=== PATIENT | female | born 1945 | race Caucasian/White ===

== ENCOUNTER 2017-01-31 11:22 | Emergency (ER) | payer OTHER ==
[2017-01-31 11:30] VITALS: BP 138/90; BMI 25.0
[2017-01-31] MEDS ORDERED: NORFLEX INJ IM ONE (12:20)
[2017-01-31] MEDS ORDERED: TORADOL 60 MG VIAL IM ONE (12:20)
[2017-01-31] MEDS ORDERED: TORADOL 60 MG VIAL ONE (12:23)
[2017-01-31] MEDS ORDERED: NORFLEX INJ ONE (12:23)
--- NOTE | 2017-01-31 12:23 | DR.GENAD ---
HPI - PCP Primary Care Physician: WEI - HPI Comment HPI Comment: PATIENT HAVE NO HISTORY OF TRAUMA OR CHRONIC BACK PAIN. NO HISTORY OF SCIATICA. PATIENT HAVE NO SIGNIFICANT PAST MEDICAL ILLNESS. - Complaint/Symptoms Chief Complaint Doctors Comments: RIGHT HIP PAIN RADIATING BACK OF LEG TIMES 2 TO 3 DAYS. Chief Complaint:: PT C/O RT HIP PAIN RADIATING DOWN LEG. PT STATES THE PAIN HAS BEEN GOING ON FOR 2 DAYS. PT DENIES ANY TRAUMA. Self Treatment fo Chief Complaint: ALIEVE AND FLEXERIL - Nurses notes reviewed Nurses Notes Review: Yes - Source History Provided: Patient - Mode of Arrival Mode of Arrival: Ambulatory - Timing Onset of Chief Complaint: 01/29/17 Came on: Suddenly - Duration Duration: Constant Duration: Days - Severity Severity: Severe PMH - PMH Past Medical History: No Past Surgical History: No - Family History History of Family Medical Conditions: No - Social History Does patient currently use any type of tobacco product: Yes Have you used tobacco products in the last 12 months: Yes Type of Tobacco Use: Cigarettes Does any household member use tobacco: Yes Alcohol Use: None Do you use any recreational Drugs:: No Lives With: Family Lives Where: Home - infectious screening In the last 2 months have you had wt loss of >10#?: NO Have you had fever, night sweats or hemotysis?: No Have you traveled outside the country in the last 6 months?: No Isolation: Standard ROS - Review of Systems Constitutional: Weakness, Fatigue, Loss of Appetite. negative: Fever Eyes: No Symptoms Reported. negative: Eye Pain ENTM: Nose Congestion, Throat Pain. negative: Ear Pain Respiratoy: Productive Cough. negative: Short of Breath, Wheezing, Hemoptysis Cardiovascular: No Symptoms Reported. negative: Edema Gastrointestinal/Abdominal: Nausea. negative: Abdominal Pain, Constipation, Diarrhea, Vomiting Genitourinary: No Symptoms Reported. negative: Dysuria, Frequency, Hematuria Neurological: No Symptoms Reported, Weakness. negative: Dizziness, Problems Walking Musculoskeletal: Joint Pain, Muscle Pain, Neck Pain, Hip Integumentary: Bruises Hematologic/Lymphatic: Easy Bleeding, Easy Bruising Endocrine: No Symptoms Reported All Other Systems: Reviewed and Negative PE - Vital Signs Vitals: Temperature 97.9 F Pulse Rate 115 Respiratory Rate 22 Blood Pressure 138/90 O2 Sat by Pulse Oximetry 91 - General Limitations: No Limitations General Appearance: Alert - Head Head Exam: Normal Inspection - Eyes Eye exam: Normal Appearance - ENT ENT Exam: Normal External Ear Exam External Ear Exam: Normal External Inspection TM/Canal Exam: Bilateral Normal Nose Exam: Normal Nose Exam Mouth Exam: Normal Inspection Throat Exam: Normal Inspection - Neck Neck Exam: Trachea Midline - Chest Chest Inspection: Symmetric Chest Wall Rise - Respiratory Respiratory Exam: Normal Lung Sounds Bilat Respiratory Exam: Bilateral Clear to Auscultation - Cardiovascular Cardiovascular Exam: Regular Rate, Normal Rhythm, Normal Heart Sounds - Abdominal Exam Abdominal Exam: Normal Bowel Sounds, Soft. negative: Tenderness - Extremities Extremities Exam: Tenderness (RIGHT HIP TENDERNESS). negative: Joint Swelling - Back Back Exam: Normal Inspection - Neurologic Neurological Exam: Alert, Oriented X3 - Skin Skin Exam: Other (BRUISES IN DIFFERENT STAGE OF HEALING.) MDM - Additional Information Additional Information Obtained From: Family - Differential Diagnosis Differential Diagnosis: HIP FRACTURE, SCIATICA, ARTHRITIS Course - Treatment Treatment: see orders. - Consultation Consultation Comments: Discuss patient with Dr. Quiroz, [facility]. He accepted patient for transfer. - Education/Counseling Education/Counseling: Patient, Family, Education ROR - Labs Reviewed Laboratory Results Reviewed?: Yes Result Diagrams: 01/31/17 12:35 01/31/17 12:35 Laboratory: WBC 207.3 X10^3/uL (3.6-10.0) H* 01/31/17 12:35 RBC 3.59 X10^6/uL (3.5-5.4) 01/31/17 12:35 Hgb 10.3 g/dL (12.0-16.0) L 01/31/17 12:35 Hct 32.5 % (36.0-47.0) L 01/31/17 12:35 MCV 90.5 fL (80.0-100.0) 01/31/17 12:35 MCH 28.6 pg (27.0-34.0) 01/31/17 12:35 MCHC 31.6 g/dL (33.0-35.0) L 01/31/17 12:35 RDW 14.7 % (11.6-16.5) 01/31/17 12:35 Plt Count 7 X10^3/uL (150.0-450.0) L* 01/31/17 12:35 Plt Count Comment Decreased (ADEQUATE) A 01/31/17 12:35 MPV 10.9 fL (7.4-11.0) 01/31/17 12:35 Neut % 19.9 % (42.0-75.0) L 01/31/17 12:35 Lymph % 2.5 % (21.0-51.0) L 01/31/17 12:35 Ritchie % 77.6 % (0.0-13.0) H 01/31/17 12:35 Eos % 0.0 % (0.9-2.9) L 01/31/17 12:35 Baso % 0 % (0.2-1.0) L 01/31/17 12:35 Neut # 41.2 x10^3/uL (2.2-4.8) H 01/31/17 12:35 Lymph # 5.2 X10^3/uL (1.3-2.9) H 01/31/17 12:35 Ritchie # 160.8 x10^3/uL (0.3-0.8) H 01/31/17 12:35 Eos # 0.1 x10^3/uL (0.0-0.2) 01/31/17 12:35 Baso # 0.0 X10^3/uL (0.0-0.1) 01/31/17 12:35 Absolute Nucleated RBC 0.0 /100WBC 01/31/17 12:35 Total Counted 100 01/31/17 12:35 Neutrophils % (Manual) 17 % (39-76) L 01/31/17 12:35 Band Neutrophils % 3 % (0-10) 01/31/17 12:35 Lymphocytes % (Manual) 10 % (13-43) L 01/31/17 12:35 Monocytes % (Manual) 10 % (4-9) H 01/31/17 12:35 Myelocytes % 10 01/31/17 12:35 Promyelocytes % 10 01/31/17 12:35 Blast Cells 40 (-1) H 01/31/17 12:35 Plt Morphology Comment Normal (NORMAL) 01/31/17 12:35 RBC Morphology Normal (NORMAL) 01/31/17 12:35 D-Dimer 826 ng/mL (0-400) H* 01/31/17 12:35 Sodium 141 mmol/L (136-145) 01/31/17 12:35 Corrected Sodium 142 mmol/L (136-145) 01/31/17 12:35 Potassium 3.0 mmol/L (3.5-5.1) L* 01/31/17 12:35 Chloride 103 mmol/L (98-107) 01/31/17 12:35 Carbon Dioxide 27.9 mmol/L (21-32) 01/31/17 12:35 BUN 11 mg/dL (7-18) 01/31/17 12:35 Creatinine 1.33 mg/dL (0.55-1.02) H 01/31/17 12:35 Est GFR (MDRD) Af Amer 50 (>60) L 01/31/17 12:35 Est GFR (MDRD) Non-Af 42 (>60) L 01/31/17 12:35 Glucose 124 mg/dL (65-99) H 01/31/17 12:35 Calcium 8.8 mg/dL (8.5-10.1) 01/31/17 12:35 Corrected Calcium 9.4 mg/dL (8.5-10.1) 01/31/17 12:35 Total Bilirubin 0.70 mg/dL (0.2-1.0) 01/31/17 12:35 AST 25 Units/L (15-37) 01/31/17 12:35 ALT 21 Units/L (12-78) 01/31/17 12:35 Alkaline Phosphatase 117 Units/L (46-116) H 01/31/17 12:35 Total Protein 7.1 g/dL (6.4-8.2) 01/31/17 12:35 Albumin 3.2 g/dL (3.4-5.0) L 01/31/17 12:35 Globulin 3.9 g/dL (2.5-4.5) 01/31/17 12:35 Albumin/Globulin Ratio 0.8 Ratio (1.1-2.1) L 01/31/17 12:35 - XRAY XRAY Interpreted by: Self XRAY Findings: no acute findings - Diagnosis Discharge Problem: Right hip pain, Thrombocytopenia Elevated white blood cell count Qualifiers: Leukocytosis type: other Qualified Code(s): D72.828 - Other elevated white blood cell count Anemia Qualifiers: Anemia type: unspecified type Qualified Code(s): D64.9 - Anemia, unspecified Leukemia Qualifiers: Leukemia type: unspecified - Discharge Plan Disposition: 02 XFER SHT-TRM HOSP Condition: Stable - Follow ups/Referrals Follow ups/Referrals: NFD,None [Primary Care Provider] - 3 days - Instructions
[2017-01-31 12:44] LABS: BASOPHILS % (AUTO) 0 % (0.2-1.0); EOSINOPHILS # (AUTO) 0.1 x10^3/uL (0.0-0.2); HEMATOCRIT 32.5 % (36.0-47.0); HEMOGLOBIN 10.3 g/dL (12.0-16.0); LYMPHOCYTES # (AUTO) 5.2 X10^3/uL (1.3-2.9); LYMPHOCYTES % (AUTO) 2.5 % (21.0-51.0); MEAN CORPUSCULAR HEMOGLOBIN 28.6 pg (27.0-34.0); MEAN CORPUSCULAR HGB CONC 31.6 g/dL (33.0-35.0); MEAN CORPUSCULAR VOLUME 90.5 fL (80.0-100.0); MEAN PLATELET VOLUME 10.9 fL (7.4-11.0); MONOCYTES # (AUTO) 160.8 x10^3/uL (0.3-0.8); MONOCYTES % (AUTO) 77.6 % (0.0-13.0); NEUTROPHILS # (AUTO) 41.2 x10^3/uL (2.2-4.8); NEUTROPHILS % (AUTO) 19.9 % (42.0-75.0); RED BLOOD COUNT 3.59 X10^6/uL (3.5-5.4); RED CELL DISTRIBUTION WIDTH 14.7 % (11.6-16.5); WHITE BLOOD COUNT 207.3 X10^3/uL (3.6-10.0)
[2017-01-31 13:25] LABS: PLATELET COUNT 7 X10^3/uL (150.0-450.0)
[2017-01-31] MEDS ORDERED: MORPHINE SULFATE INJ 4 MG IVP ONE (13:51)
[2017-01-31] MEDS ORDERED: ZOFRAN INJ 4 MG VIAL IVP ONE (13:51)
[2017-01-31] MEDS ORDERED: ZOFRAN INJ 4 MG VIAL ONE (13:53)
[2017-01-31] MEDS ORDERED: NS 1000 ML 1,000 ML ONE (13:53)
[2017-01-31] MEDS ORDERED: MORPHINE SULFATE INJ 4 MG ONE (13:53)
[2017-01-31 13:59] LABS: BAND NEUTROPHILS % 3 % (0-10)
[2017-01-31 14:00] LABS: MYELOCYTES % 10; PLATELET MORPHOLOGY COMMENT NORMAL (NORMAL); PROMYELOCYTES % 10
[2017-01-31] MEDS ORDERED: NS 1000 ML 1,000 ML IV SCH (14:00)
[2017-01-31 14:19] LABS: CALCIUM 8.8 mg/dL (8.5-10.1); CARBON DIOXIDE 27.9 mmol/L (21-32); CREATININE 1.33 mg/dL (0.55-1.02)
[2017-01-31 14:25] LABS: ALBUMIN 3.2 g/dL (3.4-5.0); COR CA(FOR HYPOALB) 9.4 mg/dL (8.5-10.1); TOTAL PROTEIN 7.1 g/dL (6.4-8.2)
[2017-01-31] MEDS ORDERED: DILAUDID INJ IVP ONE ×2 (14:45)
[2017-01-31] MEDS ORDERED: DILAUDID INJ ONE (14:46)
--- NOTE | 2017-01-31 16:18 | RAD ---
HISTORY: Pain Study: Right hip series Comparison: None Findings: There is moderate joint space narrowing symmetrically in both hips. No fracture or dislocation is se en. There are mild marginal osteophytes around the right femoral head. The pelvis is intact. The bon es are osteopenic. 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 Osteopenia. Reported By:
--- NOTE | 2017-01-31 16:46 | RAD ---
HISTORY: Pain Study: Lumbar spine series Comparison: None Findings: The lumbar vertebra are well aligned. There is mild disc space narrowing throughout. No fracture or subluxation is seen. The bones are osteopenic. There sclerotic changes of the facets throughout with no pars defects seen. The pedicles are intact. IMPRESSION: Mild degenerative disk changes throughout and mild osteoarthritic changes of the facets inferiorly w ith no acute abnormality seen . Osteopenia Reported By:
== END 2017-01-31 14:50 | disposition short-term general hospital (02) ==
LOC: ER 11:30
DX: M25.551 Pain in right hip (principal); D69.6 Thrombocytopenia, unspecified; D72.828 Other elevated white blood cell count; R79.1 Abnormal coagulation profile
CPT/HCPCS: 36415; 72110; 73501; 80053; 85025; 85060; 85378; 87040; 96365; 96372; 96374; 96375; 99283; 99285; A4222; J1170; J1885; J2270; J2360; J2405

== ENCOUNTER 2017-03-16 17:56 | Emergency (ER) | payer OTHER ==
[2017-03-16 18:04] VITALS: BP 114/66; BMI 19.5
--- NOTE | 2017-03-16 18:31 | DR.GENAD ---
HPI - PCP Primary Care Physician: dimitri - Complaint/Symptoms Chief Complaint Doctors Comments: Patient is scheduled to return to [place] tomorrow for a bone maldonado to be done. Patient has been doing well upt to now. Her daughter reports that patient reports that she is short of breath. 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 She was hospitalized up to three days ago is scheduled to return on tomorrow for a bone marrow. VSS afebrile in no acute distress. Chief Complaint:: patient was in the hospital in [place] for 5 weeks she got out wednesday, since then she has been short of breath and having chest pain that comes and goes. - Source History Provided: Patient - Mode of Arrival Mode of Arrival: Ambulatory - Timing Onset of Chief Complaint: 03/08/17 PMH - PMH Past Medical History: No Past Medical History Comment: leukemia Past Surgical History: No - Family History History of Family Medical Conditions: No - Social History Does patient currently use any type of tobacco product: No Have you used tobacco products in the last 12 months: No Type of Tobacco Use: None Does any household member use tobacco: No Alcohol Use: None Do you use any recreational Drugs:: No Lives With: Family Lives Where: Home - infectious screening In the last 2 months have you had wt loss of >10#?: NO Have you had fever, night sweats or hemotysis?: No Have you traveled outside the country in the last 6 months?: No Isolation: Standard ROS - Review of Systems Constitutional: No Symptoms Reported Eyes: No Symptoms Reported ENTM: No Symptoms Reported Respiratoy: No Symptoms Reported Cardiovascular: No Symptoms Reported Gastrointestinal/Abdominal: No Symptoms Reported Genitourinary: No Symptoms Reported Neurological: See HPI, Anxiety Musculoskeletal: No Symptoms Reported Integumentary: No Symptoms Reported Hematologic/Lymphatic: No Symptoms Reported Endocrine: No Symptoms Reported Psychiatric: No Symptoms Reported All Other Systems: Reviewed and Negative PE - Vital Signs Vitals: Temperature 97.6 F Pulse Rate 59 Respiratory Rate 18 Blood Pressure 114/66 O2 Sat by Pulse Oximetry 100 - General Limitations: No Limitations General Appearance: Alert - Head Head Exam: Normal Inspection - Eyes Eye exam: Normal Appearance - ENT ENT Exam: Normal Exam External Ear Exam: Normal External Inspection TM/Canal Exam: Bilateral Normal Nose Exam: Normal Nose Exam Mouth Exam: Normal Inspection Throat Exam: Normal Inspection - Neck Neck Exam: Normal Inspection - Chest Chest Inspection: Normal Inspection - Respiratory Respiratory Exam: Normal Lung Sounds Bilat Respiratory Exam: Bilateral Clear to Auscultation - Cardiovascular Cardiovascular Exam: Regular Rate, Normal Rhythm - Abdominal Exam Abdominal Exam: Normal Inspection Abdominal Tenderness: negative: RUQ, RLQ, LUQ, LLQ, Epigastrium, Suprapubic, Diffuse, Mild, Moderate, Severe, Other - Extremities Extremities Exam: Normal Inspection, Full ROM - Back Back Exam: Normal Inspection - Neurologic Neurological Exam: Alert, Oriented X3, CN II-XII Intact - Psychiatric Psychiatric Exam: Normal Affect - Skin Skin Exam: Warm, Dry, Intact - Diagnosis Discharge Problem: Anxiety - Discharge Plan Condition: Stable - Follow ups/Referrals Follow ups/Referrals: Tahir Ness [Primary Care Provider] - 3 days - Instructions
[2017-03-16] MEDS ORDERED: ATIVAN TAB 1 MG PO ONE (18:35)
[2017-03-16] MEDS ORDERED: ATIVAN TAB 1 MG ONE (18:37)
== END 2017-03-16 18:56 | disposition home or self-care (01) ==
LOC: ER 18:04
DX: F41.8 Other specified anxiety disorders (principal)
CPT/HCPCS: 99282

== ENCOUNTER 2017-08-09 12:52 | Inpatient (IN) | payer OTHER ==
[2017-08-09] MEDS ORDERED: DOPAMINE IV PREMIX 400 MG/250 ML 400 MG/250 ML BAG IV PRN (13:17)
[2017-08-09] MEDS ORDERED: NS 1000 ML 1,000 ML IV ONE (13:17)
--- NOTE | 2017-08-09 13:20 | DR.GENAD ---
HPI - PCP Primary Care Physician: Dr Ness - Complaint/Symptoms Chief Complaint Doctors Comments: Patient presented to the ED with complaint of lethargic. She is a cancer patient receiving care in [place] she has AML. She receives blood weekly. PMH - PMH Past Surgical History: No - Social History Do you use any recreational Drugs:: No ROS - Review of Systems Constitutional: See HPI Eyes: No Symptoms Reported ENTM: No Symptoms Reported Respiratoy: No Symptoms Reported Cardiovascular: No Symptoms Reported Gastrointestinal/Abdominal: No Symptoms Reported Genitourinary: No Symptoms Reported Neurological: No Symptoms Reported Musculoskeletal: No Symptoms Reported Integumentary: No Symptoms Reported Hematologic/Lymphatic: No Symptoms Reported Endocrine: No Symptoms Reported Psychiatric: No Symptoms Reported All Other Systems: Reviewed and Negative PE - Vital Signs Vitals: Temperature 97.4 F Pulse Rate [Right Radial] 114 Pulse Rate 105 Respiratory Rate 24 Blood Pressure [Right Arm] 94/49 Blood Pressure 64/64 O2 Sat by Pulse Oximetry 96 - General Limitations: negative: Language Barrier General Appearance: Alert - Head Head Exam: Normal Inspection, Atraumatic - Eyes Eye exam: Normal Appearance, PERRL, EOMI - ENT ENT Exam: Normal Exam External Ear Exam: Normal External Inspection TM/Canal Exam: Bilateral Normal Nose Exam: Normal Nose Exam Mouth Exam: Normal Inspection Throat Exam: Normal Inspection - Neck Neck Exam: Normal Inspection, Full ROM - Chest Chest Inspection: Normal Inspection - Respiratory Respiratory Exam: Normal Lung Sounds Bilat Respiratory Exam: Bilateral Clear to Auscultation - Cardiovascular Cardiovascular Exam: Regular Rate, Tachycardia - Abdominal Exam Abdominal Exam: Normal Inspection Abdominal Tenderness: negative: RUQ, RLQ, LUQ, LLQ, Epigastrium, Suprapubic, Diffuse, Mild, Moderate, Severe, Other - Extremities Extremities Exam: Normal Inspection, Full ROM - Back Back Exam: Normal Inspection, Full ROM - Neurologic Neurological Exam: Alert, CN II-XII Intact - Psychiatric Psychiatric Exam: Normal Affect - Skin Skin Exam: Warm, Dry, Pallor Course - Reevaluation 1st: Unchanged - Consultation Called: 14:40 (Dr Ness agreed to admit for further management) ROR - Labs Reviewed Result Diagrams: 08/09/17 13:30 08/09/17 13:30 Laboratory: WBC 161.8 X10^3/uL (3.6-10.0) H* 08/09/17 13:30 RBC 1.16 X10^6/uL (3.5-5.4) L 08/09/17 13:30 Hgb 3.6 g/dL (12.0-16.0) L* 08/09/17 13:30 Hct 12.2 % (36.0-47.0) L* 08/09/17 13:30 MCV 104.7 fL (80.0-100.0) H 08/09/17 13:30 MCH 30.6 pg (27.0-34.0) 08/09/17 13:30 MCHC 29.3 g/dL (33.0-35.0) L 08/09/17 13:30 RDW 18.8 % (11.6-16.5) H 08/09/17 13:30 Plt Count 65 X10^3/uL (150.0-450.0) L 08/09/17 13:30 Plt Count Comment Decreased (ADEQUATE) A 08/09/17 13:30 MPV 9.0 fL (7.4-11.0) 08/09/17 13:30 Neut % 81.8 % (42.0-75.0) H 08/09/17 13:30 Lymph % 11.3 % (21.0-51.0) L 08/09/17 13:30 Trigg % 5.2 % (0.0-13.0) 08/09/17 13:30 Eos % 1.7 % (0.9-2.9) 08/09/17 13:30 Baso % 0 % (0.2-1.0) L 08/09/17 13:30 Neut # 132.2 x10^3/uL (2.2-4.8) H 08/09/17 13:30 Lymph # 18.3 X10^3/uL (1.3-2.9) H 08/09/17 13:30 Trigg # 8.5 x10^3/uL (0.3-0.8) H 08/09/17 13:30 Eos # 2.7 x10^3/uL (0.0-0.2) H 08/09/17 13:30 Baso # 0.1 X10^3/uL (0.0-0.1) 08/09/17 13:30 Absolute Nucleated RBC 0.7 /100WBC 08/09/17 13:30 Total Counted 100 08/09/17 13:30 Neutrophils % (Manual) 4 % (39-76) L 08/09/17 13:30 Lymphocytes % (Manual) 6 % (13-43) L 08/09/17 13:30 Monocytes % (Manual) 8 % (4-9) 08/09/17 13:30 Promyelocytes % 4 08/09/17 13:30 Blast Cells 78 (-1) H 08/09/17 13:30 Smudge Cells 1+ A 08/09/17 13:30 Plt Morphology Comment Abnormal (NORMAL) A 08/09/17 13:30 RBC Morphology Abnormal (NORMAL) A 08/09/17 13:30 Hypochromasia 1+ A 08/09/17 13:30 Poikilocytosis 1+ A 08/09/17 13:30 Anisocytosis 1+ A 08/09/17 13:30 D-Dimer 1340 ng/mL (0-400) H* 08/09/17 13:30 Sample Site Left brachial 08/09/17 12:58 ABG pH 7.100 (7.35-7.45) L* 08/09/17 12:58 ABG pCO2 22.0 mmHg (35.0-45.0) L 08/09/17 12:58 ABG pO2 138.0 mmHg (80.0-100.0) H 08/09/17 12:58 ABG HCO3 6.8 mmol/L (22-26) L* 08/09/17 12:58 ABG O2 Saturation 98.0 % (90-100) 08/09/17 12:58 ABG Base Excess -21.2 mmol/L (-2.0-2.0) L 08/09/17 12:58 Sam Test Na 08/09/17 12:58 A-a Gradient 548.0 mmHg 08/09/17 12:58 FiO2 100.000 08/09/17 12:58 Blood Gas Comments Navin well gb 08/09/17 12:58 Sodium 142 mmol/L (136-145) 08/09/17 13:30 Corrected Sodium 146 mmol/L (136-145) H 08/09/17 13:30 Potassium 4.9 mmol/L (3.5-5.1) 08/09/17 13:30 Chloride 106 mmol/L (98-107) 08/09/17 13:30 Carbon Dioxide 7.5 mmol/L (21-32) L* 08/09/17 13:30 BUN 52 mg/dL (7-18) H 08/09/17 13:30 Creatinine 1.95 mg/dL (0.55-1.02) H 08/09/17 13:30 Est GFR (MDRD) Af Amer 32 (>60) L 08/09/17 13:30 Est GFR (MDRD) Non-Af 27 (>60) L 08/09/17 13:30 Glucose 264 mg/dL (65-99) H 08/09/17 13:30 POC Glucose (mg/dL) 240 mg/dL (65-99) H 08/09/17 12:56 Lactic Acid 15.6 mmol/L (0.4-2.0) H 08/09/17 13:30 Calcium 7.4 mg/dL (8.5-10.1) L 08/09/17 13:30 Corrected Calcium 9.2 mg/dL (8.5-10.1) 08/09/17 13:30 Total Bilirubin 0.50 mg/dL (0.2-1.0) 08/09/17 13:30 AST 53 Units/L (15-37) H 08/09/17 13:30 ALT 8 Units/L (12-78) L 08/09/17 13:30 Alkaline Phosphatase 72 Units/L (46-116) 08/09/17 13:30 Creatine Kinase 67 Units/L (26-192) 08/09/17 13:30 CK-MB (CK-2) 1.7 ng/mL (0-4.0) 08/09/17 13:30 CK/CKMB % Calc 2.5 % (<4) 08/09/17 13:30 Troponin I 0.27 ng/mL (0-1.5) 08/09/17 13:30 Total Protein 4.5 g/dL (6.4-8.2) L 08/09/17 13:30 Albumin 1.8 g/dL (3.4-5.0) L 08/09/17 13:30 Globulin 2.7 g/dL (2.5-4.5) 08/09/17 13:30 Albumin/Globulin Ratio 0.7 Ratio (1.1-2.1) L 08/09/17 13:30 Acetone, Semi-Quant Small (NEGATIVE) H 08/09/17 13:30 Blood Type O POSITIVE 08/09/17 14:25 Antibody Screen Negative 08/09/17 14:25 Crossmatch See Detail 08/09/17 14:25 - XRAY XRAY Interpreted by: Radiologist (Chest: The heart is upper normal in transverse dimension. There are diffuse reticular nodular infiltrates throughout the lungs. No discrete mass, pneumothorax or large pleural effusion is evident. There is a nonspecific area of sclerosis in the proximal left humerus. Impression: Bilateral cardiomegaly with bilateral pulmonary infiltrates. The infiltrates may represent CHF with edema,less likely pulmonary infection. The ossibllliity of leukemic infiltrates should be considered in light of the provided history.) - Diagnosis Discharge Problem: Probable sepsis, Thrombocytopenia, Dehydration, Metabolic acidosis, Lactic acidosis Anemia Qualifiers: Anemia type: other cause Other causes of anemia: antineoplastic chemotherapy Qualified Code(s): D64.81 - Anemia due to antineoplastic chemotherapy; T45.1X5A - Adverse effect of antineoplastic and immunosuppressive drugs, initial encounter; T45.1X5A - Adverse effect of antineoplastic and immunosuppressive drugs, initial encounter Leukocytosis Qualifiers: Leukocytosis type: unspecified Qualified Code(s): D72.829 - Elevated white blood cell count, unspecified - Discharge Plan Condition: Stable - Follow ups/Referrals Follow ups/Referrals: Tahir Ness [Primary Care Provider] - 3 days - Instructions
[2017-08-09 13:21] VITALS: BMI 25.1
[2017-08-09 13:23] LABS: ABG BASE EXCESS -21.2 mmol/L (-2.0-2.0)
[2017-08-09 13:25] LABS: ABG HCO3 6.8 mmol/L (22-26)
--- NOTE | 2017-08-09 13:44 | RAD ---
Examination: AP chest History: Dyspnea, leukemia Comparison reference: None Findings: The heart is upper normal in transverse dimension. There are diffuse reticular-nodular infi ltrates throughout the lungs. No discrete mass, pneumothorax or large pleural effusion is evident. Th ere is a nonspecific area of sclerosis in the proximal left humerus. Impression: Bilateral cardiomegaly with bilateral pulmonary infiltrates. The infiltrates may represen t CHF with edema, less likely pulmonary infection. The possibility of leukemic infiltrates should be considered in light of the provided history. Reported By:
[2017-08-09 13:52] LABS: BASOPHILS # (AUTO) 0.1 X10^3/uL (0.0-0.1); BASOPHILS % (AUTO) 0 % (0.2-1.0); EOSINOPHILS # (AUTO) 2.7 x10^3/uL (0.0-0.2); EOSINOPHILS % (AUTO) 1.7 % (0.9-2.9); LYMPHOCYTES # (AUTO) 18.3 X10^3/uL (1.3-2.9); LYMPHOCYTES % (AUTO) 11.3 % (21.0-51.0); MEAN CORPUSCULAR HEMOGLOBIN 30.6 pg (27.0-34.0); MEAN CORPUSCULAR HGB CONC 29.3 g/dL (33.0-35.0); MEAN CORPUSCULAR VOLUME 104.7 fL (80.0-100.0); MONOCYTES # (AUTO) 8.5 x10^3/uL (0.3-0.8); MONOCYTES % (AUTO) 5.2 % (0.0-13.0); NEUTROPHILS # (AUTO) 132.2 x10^3/uL (2.2-4.8); NEUTROPHILS % (AUTO) 81.8 % (42.0-75.0); PLATELET COUNT 65 X10^3/uL (150.0-450.0); RED BLOOD COUNT 1.16 X10^6/uL (3.5-5.4); RED CELL DISTRIBUTION WIDTH 18.8 % (11.6-16.5)
[2017-08-09] MEDS ORDERED: SODIUM BICARBONATE 8.4% INJ ADULT 50 ML in NS 1/2 500 ML IV 500 ML IV ONE (14:05)
[2017-08-09] MEDS ORDERED: SODIUM BICARBONATE 8.4% INJ ADULT ONE ×3 (14:05→17:58)
[2017-08-09 14:19] LABS: HEMATOCRIT 12.2 % (36.0-47.0); HEMOGLOBIN 3.6 g/dL (12.0-16.0); WHITE BLOOD COUNT 161.8 X10^3/uL (3.6-10.0)
[2017-08-09 14:21] LABS: ANISOCYTOSIS 1+; HYPOCHROMASIA 1+; PLATELET MORPHOLOGY COMMENT ABNORMAL (NORMAL); POIKILOCYTOSIS 1+; PROMYELOCYTES % 4; SMUDGE CELLS 1+
[2017-08-09 14:26] LABS: ALBUMIN 1.8 g/dL (3.4-5.0); CALCIUM 7.4 mg/dL (8.5-10.1); CKMB % 2.5 % (<4); COR CA(FOR HYPOALB) 9.2 mg/dL (8.5-10.1); CREATINE KINASE MB 1.7 ng/mL (0-4.0); CREATININE 1.95 mg/dL (0.55-1.02); TOTAL PROTEIN 4.5 g/dL (6.4-8.2); TROPONIN I 0.27 ng/mL (0-1.5)
[2017-08-09 14:32] LABS: CARBON DIOXIDE 7.5 mmol/L (21-32)
[2017-08-09] MEDS ORDERED: ROCEPHIN VIAL 1 GM ONE (15:22)
[2017-08-09] MEDS ORDERED: NS 250 ML IV 250 ML IV ONE (15:27)
[2017-08-09] MEDS ORDERED: ROCEPHIN VIAL 1 GM 1 GM in NS 50 ML IV + SPIKE MINIBAG* 50 ML IV SCH (15:30)
[2017-08-09] MEDS ORDERED: NS 1000 ML 1,000 ML ONE ×2 (15:47→17:54)
[2017-08-09 16:25] LABS: PHOSPHORUS 7.3 mg/dL (2.6-4.7)
[2017-08-09 17:14] LABS: BILIRUBIN,URINE 1+ (NEGATIVE); BLOOD/HEMOGLOBIN,URINE 2+ (NEGATIVE); GLUCOSE, URINE NEGATIVE (NEGATIVE); KETONES,URINE NEGATIVE (NEGATIVE); LEUKOCYTE ESTERASE ,URINE 1+ (NEGATIVE); NITRITES,URINE NEGATIVE (NEGATIVE); PROTEIN,URINE 3+ (NEGATIVE); UROBILINOGEN,URINE 2+ (NORMAL)
[2017-08-09 17:23] LABS: AMORPHOUS SEDIMENT,UR 2+ /HPF (NEGATIVE); APPEARANCE,URINE SLIGHTLY HAZY (CLEAR); BACTERIA,URINE 1+ /HPF (NEGATIVE); COLOR,URINE DARK YELLOW (YELLOW); RBC,URINE 0-2 /HPF (NEGATIVE); SQUAMOUS EPITHELIAL CELL,UR NEGATIVE /HPF (NEGATIVE)
[2017-08-09 17:37] LABS: ABG BASE EXCESS -21.8 mmol/L (-2.0-2.0)
[2017-08-09 17:38] LABS: ABG HCO3 7.6 mmol/L (22-26)
[2017-08-09] MEDS ORDERED: NS 1000 ML 1,000 ML with SODIUM BICARBONATE 8.4% INJ ADULT 100 ML IV SCH ×2 (18:00)
[2017-08-09] MEDS ORDERED: NORCO 5/325 MG TAB PO PRN (20:39)
[2017-08-09 21:27] LABS: CKMB % 3.9 % (<4)
[2017-08-09 21:31] LABS: TROPONIN I 4.15 ng/mL (0-1.5)
[2017-08-09 23:40] LABS: HEMATOCRIT 28.6 % (36.0-47.0); HEMOGLOBIN 9.2 g/dL (12.0-16.0)
[2017-08-10 02:10] LABS: HEMOGLOBIN 8.3 g/dL (12.0-16.0)
[2017-08-10 02:44] LABS: BASOPHILS % (AUTO) 0 % (0.2-1.0); CKMB % 4.5 % (<4); HEMATOCRIT 25.2 % (36.0-47.0); LYMPHOCYTES # (AUTO) 32.3 X10^3/uL (1.3-2.9); LYMPHOCYTES % (AUTO) 33.9 % (21.0-51.0); MEAN CORPUSCULAR HEMOGLOBIN 29.7 pg (27.0-34.0); MEAN CORPUSCULAR HGB CONC 32.9 g/dL (33.0-35.0); MEAN CORPUSCULAR VOLUME 90.3 fL (80.0-100.0); MEAN PLATELET VOLUME 8.5 fL (7.4-11.0); NEUTROPHILS # (AUTO) 2.9 x10^3/uL (2.2-4.8); NEUTROPHILS % (AUTO) 3.1 % (42.0-75.0); PLATELET COUNT 42 X10^3/uL (150.0-450.0); RED BLOOD COUNT 2.79 X10^6/uL (3.5-5.4); RED CELL DISTRIBUTION WIDTH 16.7 % (11.6-16.5)
[2017-08-10 02:49] LABS: CREATINE KINASE MB 22.3 ng/mL (0-4.0)
[2017-08-10 02:50] LABS: TROPONIN I 13.36 ng/mL (0-1.5); WHITE BLOOD COUNT 95.2 X10^3/uL (3.6-10.0)
[2017-08-10 03:11] LABS: METAMYELOCYTES % 5
[2017-08-10 03:12] LABS: PLATELET MORPHOLOGY COMMENT ABNORMAL (NORMAL)
[2017-08-10 03:13] LABS: ANISOCYTOSIS SLIGHT; POIKILOCYTOSIS SLIGHT
[2017-08-10 03:29] VITALS: BP 112/54
[2017-08-10] MEDS ORDERED: ROCEPHIN 1 GM IV PREMIX 1 GM/50 ML IV.SOLN. IV SCH (09:00)
== END 2017-08-10 03:25 | disposition short-term general hospital (02) | DRG 641 ==
LOC: ER 12:57 → ICU 15:47
PROVIDERS: ADMIT Internal Medicine; ATTEND Internal Medicine
PROC: 30233N1 Transfusion of Nonautologous Red Blood Cells into Peripheral Vein, Percutaneous Approach (ICD-10-PCS; principal; 2017-08-09)
PROC: 30233N1 Transfusion of Nonautologous Red Blood Cells into Peripheral Vein, Percutaneous Approach (ICD-10-PCS; 2017-08-09)
PROC: 30233N1 Transfusion of Nonautologous Red Blood Cells into Peripheral Vein, Percutaneous Approach (ICD-10-PCS; 2017-08-09)
DX: E86.0 Dehydration (principal); D64.81 Anemia due to antineoplastic chemotherapy; D69.6 Thrombocytopenia, unspecified; T45.1X5A Adverse effect of antineoplastic and immunosuppressive drugs, initial encounter; D72.828 Other elevated white blood cell count; R94.31 Abnormal electrocardiogram [ECG] [EKG]; E87.2 Acidosis
CPT/HCPCS: 36415; 36430; 36600; 71010; 80053; 81001; 82009; 82150; 82533; 82550; 82553; 82803; 83605; 83690; 84100; 84484; 85014; 85018; 85025; 85378; 85610; 85730; 86850; 86900; 86901; 86922; 93005; 93041; 96365; 96374; 96375; 99284; P9016; J0696; J3490